=== PATIENT | male | born 1985 | race Caucasian/White ===

== ENCOUNTER 2022-11-19 22:03 | Emergency (ER) | payer OTHER ==
[~2022-11-19] VITALS: Ht 172.7 cm; Wt 72.6 kg
[2022-11-19 22:26] VITALS: BP 136/94
== END 2022-11-19 22:26 | disposition left against medical advice (07) ==
LOC: MED 22:03
DX: R42 Dizziness and giddiness (principal); Z53.21 Procedure and treatment not carried out due to patient leaving prior to being seen by health care provider